=== PATIENT | male | born 1970 | race Caucasian/White ===

== ENCOUNTER → 2018-10-16 | Outpatient (CLI) | payer OTHER ==
--- NOTE | 2018-10-16 14:41 | 2DMMODE ---
[facility] [place] [address] 2 D/M-MODE ECHOCARDIOGRAM Name: SANIYA TOVAR Room #: [facility]#: [id number] ������������� Admission: 10/16/18 ������������� Attend Phys: Ahsan Dorado MD Discharge: ��� ������������� ��� Date of : 68 Date of Service: 10/16/18 1441 �� Report #: [id number] �������� ��������������������������������������������[id number] THIS REPORT FOR: //name// APPROVED REPORT Study performed: 10/16/2018 12:50:42 EXAM: Comprehensive 2D, Doppler, and color-flow Echocardiogram Patient Location: Echo lab Status: routine BSA: 2.02 HR: 90 bpm BP: 123/68 mmHg Rhythm: NSR Other Information Study Quality: Good Indications Chest Pain 2D Dimensions RVDd: 31.65 mm IVSd: 9.34 (7-11mm) LVOT Diam: 20.58 (18-24mm) LVDd: 39.33 mm PWd: 9.91 (7-11mm) Ascending Ao: 24.50 (22-36mm) LVDs: 26.08 (25-40mm) Aortic Root: 26.60 mm IVC: 15.00 mm Volumes Left Atrial Volume (Systole) Single Plane 4CH: 24.04 mL Single Plane 2CH: 30.08 mL LA ESV Index: 15.00 mL/m2 Aortic Valve AoV Peak Trevor.: 1.50 m/s AO Peak Gr.: 9.04 mmHg LVOT Max P.79 mmHg LVOT Max V: 1.40 m/s ALYSIA Vmax: 3.09 cm2 Mitral Valve E/A Ratio: 1.2 MV Decel. Time: 183.01 ms MV E Max Trevor.: 0.62 m/s [facility] [address] [place] [address] 2 D/M-MODE ECHOCARDIOGRAM Name: SANIYA TOVAR Nery Room #: [facility]#: [id number] ������������� Admission: 10/16/18 ������������� Attend Phys: Ahsan Dorado MD Discharge: ��� ������������� ��� Date of : 68 Date of Service: 10/16/18 1441 �� Report #: [id number] �������� ��������������������������������������������[id number] MV A Trevor.: 0.53 m/s MV PHT: 53.07 ms IVRT: 79.58 ms Pulmonary Valve PV Peak Trevor.: 1.15 m/s PV Peak Gr.: 5.30 mmHg Pulmonary Vein P Vein S: 0.58 m/s P Vein A: 0.12 m/s P Vein D: 0.39 m/s P Vein A Dur.: 76.1 msec P Vein S/D Ratio: 1.49 Tricuspid Valve RAP Estimate: 5.00 mmHg Left Ventricle The left ventricle is normal size. There is normal left ventricular wall thickness. The left ventricular systolic function is normal. The left ventricular ejection fraction is within the normal range. LVEF is 60-65%. The left ventricular diastolic function is normal. Right Ventricle The right ventricle is normal size. The right ventricular systolic function is normal. Atria The left atrium size is normal. The right atrium size is normal. Aortic Valve The aortic valve is normal in structure. No aortic regurgitation is present. There is no aortic valvular stenosis. Mitral Valve The mitral valve is normal in structure. Trace mitral regurgitation. No evidence of mitral valve stenosis. Tricuspid Valve The tricuspid valve is normal in structure. Trace tricuspid regurgitation. Unable to assess PA pressure. Pulmonic Valve The pulmonary valve is normal in structure. There is no pulmonic valvular regurgitation. [employer] [facility] [address] [place] [address] 2 D/M-MODE ECHOCARDIOGRAM Name: SANIYA TOVAR Room #: [facility]#: [id number] ������������� Admission: 10/16/18 ������������� Attend Phys: Ahsan Dorado MD Discharge: ��� ������������� ��� Date of : 68 Date of Service: 10/16/18 1441 �� Report #: [id number] �������� ��������������������������������������������[id number] The aortic root is normal in size. IVC is normal in size and collapses >50% with inspiration. Pericardium There is no pericardial effusion. <Conclusion> The left ventricle is normal size. There is normal left ventricular wall thickness. The left ventricular systolic function is normal. The right ventricle is normal size. The left atrium size is normal. The right atrium size is normal. The aortic valve is normal in structure. Trace mitral regurgitation. Trace tricuspid regurgitation. ��������������������������������������������� <ELECTRONICALLY SIGNED> ���������������������������������������� By: Ahsan Dorado MD ��������������������������������������������� 10/16/18 144 40 40 Ahsan Dorado MD /INF
--- NOTE | 2018-10-16 14:48 | EXE ---
[facility] [place] [address] STRESS ECHOCARDIOGRAM Name: SANIYA TOVAR Room #: [facility]#: [id number] ������������� Admission: 10/16/18 ������������� Attend Phys: Ahsan Dorado MD Discharge: ��� ������������� ��� Date of : 68 Date of Service: 10/16/18 1448 �� Report #: [id number] �������� ��������������������������������������������[id number] THIS REPORT FOR: //name// APPROVED REPORT Study performed: 10/16/2018 13:22:38 Exam: Stress Echocardiogram Indication: Screening for CAD/ Chest pain Patient Location: Echo lab Stress Nurse: Lilian Tao RN Status: routine Ht: 5 ft 9 in Rhythm: NSR Medical History Medical History: No history of CAD Allergies: No known drug allergies Cardiac Risk Factors: Hyperlipidemia Procedure The patient underwent an Exercise Stress Test using the Remington Protocol. Blood pressure, heart rate, and EKG were monitored. An Echocardiogram was performed by factory maintenance technician in four stages in quad fashion. At peak stress, four selected images were obtained and placed side by side with resting images for comparison. Stress Test Details Stress Test: Exercise stress testing was performed using a Remington protocol. HR Resting HR: 94 bpm Max Heart Rate (APMHR): 171 bpm Max HR Achieved: 171 bpm Target HR (85% APMHR): 145 bpm % of APMHR: 100 Recovery HR: 114 bpm HR response to stress: Normal HR response to stress BP Resting BP: 123/68 mmHg Max BP: 158/76 mmHg Recovery BP: 128/70 mmHg BP response to stress: Normal blood pressure response to stress. ECG [facility] [address] [place] [address] STRESS ECHOCARDIOGRAM Name: SANIYA TOVAR Room #: [facility]#: [id number] ������������� Admission: 10/16/18 ������������� Attend Phys: Ahsan Dorado MD Discharge: ��� ������������� ��� Date of : 68 Date of Service: 10/16/18 1448 �� Report #: [id number] �������� ��������������������������������������������[id number] Resting ECG: Sinus Rhythm Stress ECG: Sinus Rhythm, nonspecific ST-T abnormalities ST Change: Eqivocal Clinical Reason for Termination: Maximal effort Stress Symptoms: Leg Fatigue Exercise duration: 9 min 45 sec Highest Stage Achieved: Stage 4: 4.2 mph at 16% grade. Exercise capacity: 12.50 METs Pre-Stress Echo The resting Echocardiogram showed normal left ventricular contractility with an estimated Ejection Fraction of about 60%. The resting echocardiogram demonstrated normal wall motion in all wall segments. Normal wall motion in all segments on baseline images. Post-Stress Echo The stress Echocardiogram showed normal left ventricular contractility with an estimated Ejection Fraction of about >70%. Compared to rest, there were no stress-induced wall motion abnormalities. Normal augmentation of wall motion in all segments on post stress images. Clinical No clinical evidence for ischemia. Conclusion Clinical Response: Non-ischemic Exercise Capacity: Above average Stress ECG Response: Indeterminant Stress Echo Images: Non-ischemic The left ventricle is normal in size and wall thickness in both the rest and stress images. Other Information Study Quality: Good <Conclusion> [facility] [address] [place] [address] STRESS ECHOCARDIOGRAM Name: SANIYA TOVAR Room #: [facility]#: [id number] ������������� Admission: 10/16/18 ������������� Attend Phys: Ahsan Dorado MD Discharge: ��� ������������� ��� Date of : 68 Date of Service: 10/16/18 1448 �� Report #: [id number] �������� ��������������������������������������������[id number] The left ventricle is normal in size and wall thickness in both the rest and stress images. ��������������������������������������������� <ELECTRONICALLY SIGNED> ���������������������������������������� By: Ahsan Dorado MD ��������������������������������������������� 10/16/18 1448 1448 1448 Ahsan Dorado MD /INF
== END | disposition home or self-care (01) ==
LOC: CV 12:29
DX: I08.1 Rheumatic disorders of both mitral and tricuspid valves (principal); E78.5 Hyperlipidemia, unspecified

== ENCOUNTER → 2018-10-16 | Outpatient (CLI) | payer OTHER | LOC: CAT 14:02 | DX: Z13.6 Encounter for screening for cardiovascular disorders (principal); E78.00 Pure hypercholesterolemia, unspecified; I25.10 Atherosclerotic heart disease of native coronary artery without angina pectoris ==